=== PATIENT | female | born 1945 | race Caucasian/White ===

== ENCOUNTER → 2022-03-30 | Outpatient (CLI) | payer MEDICARE, OTHER, SELFPAY ==
[2022-03-30 16:02] LABS: Absolute Lymphocyte Count 1.83 X10^3/uL (0.83-4.51); Absolute Neutrophil Count 5.8 X10^3/uL (2.0-7.7); Basophil# 0.07 X10^3/uL; Basophil% 0.8 % (0-1); Eosinophil# 0.12 X10^3/uL; Eosinophils% 1.4 % (0-5); Hemoglobin 13.9 g/dL (12.0-15.0); Lymphocyte # 1.83 X10^3/ul (0.83-4.51); Lymphocyte % 20.7 % (19-41); Mean Corp Hgb Conc 33.1 g/dL (32-36); Mean Corpuscular Hgb 30.1 pg (27.0-32.0); Mean Corpuscular Volume 90.9 fL (81-99); Mean Platelet Vol. 11.8 fl (6.2-12.0); Monocyte# 1.01 X10^3/uL; Monocyte% 11.4 % (0-10); NRBC Flagged by Analyzer 0 % (0-5); Neutrophil % 65.5 % (47-70); Platelet Count 200 K/mm3 (150-450); RBC Distribution Width CV 13.9 % (11.6-14.6); RBC Distribution Width SD 46.4 fl (35.1-43.9); Red Blood Count 4.62 M/mm3 (4.2-5.4); White Blood Count 8.9 K/mm3 (4.4-11.0)
[2022-03-30 16:39] LABS: ALB/GLOB Ratio 0.6 RATIO (0.9-2.4); AST(SGOT) 139 U/L (15-37); Alanine Aminotransfer ALT/SGPT 115 U/L (13-56); Albumin, Serum 2.6 g/dL (3.2-5.0); Alkaline Phosphatase 360 U/L (45-117); Amylase 42 U/L (25-115); Anion Gap 6 (5-15); BUN 22 mg/dL (7-18); BUN/Creat Ratio 17.6 RATIO (10-20); Calcium,Total 9.3 mg/dL (8.5-10.1); Chloride 101 mmol/L (98-107); Creatinine, Serum 1.25 mg/dL (0.55-1.02); EST Glomerular Filtration Rate 44 mL/min (>60); Est Glom Filt Rate - Afr Amer 53 mL/min (>60); Globulin 4.7 g/dL (2.2-4.2); Glucose 111 mg/dL (74-106); Lipase 183 U/L (73-393); Potassium 3.7 mmol/L (3.5-5.1); Protein, Total 7.3 g/dL (6.4-8.2); Sodium Level 136 mmol/L (136-145)
[2022-03-30 17:03] LABS: Erythrocyte Sedimentation Rate 43 mm/hr (0-30)
== END | disposition home or self-care (01) ==
PROVIDERS: PCP Internal Medicine; Visit Provider Nurse Practitioner Adult Health
DX: R63.4 Abnormal weight loss (principal); R68.81 Early satiety; R11.0 Nausea; R10.13 Epigastric pain; T73.0XXA Starvation, initial encounter; K21.9 Gastro-esophageal reflux disease without esophagitis
CPT/HCPCS: 36415; 80053; 82150; 83690; 85025; 85652; 86140

== ENCOUNTER → 2022-04-03 | Outpatient (CLI) | payer MEDICARE, OTHER, SELFPAY ==
--- NOTE | 2022-04-03 12:05 | US_ITS ---
STUDY: ABDOMINAL ULTRASOUND - RIGHT UPPER QUADRANT REASON FOR VISIT: Female, 76 years old abnormal liver labs . Epigastric pain. TECHNIQUE: Ultrasound evaluation of the right upper quadrant was performed with real-time and static mccloud-scale imaging. TECHNICAL QUALITY: Adequate. COMPARISON: None. FINDINGS: Liver: The liver measures 17 cm. There is a heterogeneous echogenicity of the liver. Scattered hypodense solid nodules are seen throughout the liver. Metastatic disease should be ruled out. The bile ducts are within normal limits. There is hepatic color flow. The direction of portal flow is hepatopetal. There is no demonstrated mass lesion. Gallbladder: The patient is status post cholecystectomy. Common Bile Duct (C.B.D.): The common bile duct measures 5 mm. Pancreas: Limited visualization of the pancreas due to overlying bowel gas. Right Kidney: Normal size of the right kidney. The right kidney measures 10.8 cm x 4.3 cm x 4.4 cm. Normal renal cortex. The right cortex measures 1.5 cm. There is no demonstrated renal mass or cyst. There is no right hydronephrosis. US/Abdomen Limited IMPRESSION: Mild hepatomegaly and heterogeneous echotexture of the liver parenchyma with multiple hypoechoic solid nodules throughout both the right and left lobes. Metastatic disease should be ruled out. The patient is status post cholecystectomy. Electronically Signed: Jaret Starkey MD at 12:57 EDT ,
== END | disposition home or self-care (01) ==
LOC: US 12:03
PROVIDERS: PCP Internal Medicine; Referring Provider Nurse Practitioner Adult Health; Visit Provider Nurse Practitioner Adult Health
DX: K83.1 Obstruction of bile duct (principal); R10.13 Epigastric pain
CPT/HCPCS: 76705

== ENCOUNTER → 2022-04-06 | Outpatient (CLI) | payer MEDICARE, OTHER, SELFPAY ==
--- NOTE | 2022-04-06 08:30 | RAD_ITS ---
STUDY: AIR-CONTRAST UPPER GI SERIES REASON FOR EXAM: Female, 76 years old. Epigastric pain. FLUOROSCOPY TIME (if supplied): (1 minute 10 seconds). TECHNIQUE: Single contrast and air contrast fluoroscopic images. COMPARISON: Abdomen ultrasound from 04/03/2022 FINDINGS: AP images of the chest and upper abdomen taken prior to contrast administration demonstrate cervical fusion hardware and right upper quadrant surgical clips. The esophagus demonstrates normal motility without aspiration. There is no stricture or extrinsic mass effect. No intraluminal polypoid mass is identified. No sizable hiatal hernia. Small amount of gastroesophageal reflux was elicited. The stomach distends well without mucosal fold thickening or mucosal ulceration. There is no intraluminal mass. The duodenal bulb is freely distensible without deformity or ulceration. The duodenal sweep is normal in position and caliber. RAD/Upper GI/w Small Bowel IMPRESSION: Small amount of gastroesophageal reflux. Otherwise, no other significant findings. Electronically Signed: Ranulfo Michaud, at 13:09 EDT ,
== END | disposition home or self-care (01) ==
LOC: RAD 08:28
PROVIDERS: PCP Internal Medicine; Referring Provider Nurse Practitioner Adult Health; Visit Provider Nurse Practitioner Adult Health
DX: R10.13 Epigastric pain (principal); R63.4 Abnormal weight loss; R68.81 Early satiety; R11.0 Nausea; K21.9 Gastro-esophageal reflux disease without esophagitis; T73.0XXA Starvation, initial encounter
CPT/HCPCS: 74246; 74248

== ENCOUNTER → 2022-04-08 | Outpatient (CLI) | payer MEDICARE, OTHER, SELFPAY ==
--- NOTE | 2022-04-08 10:25 | NM_ITS ---
CLINICAL: 76-year-old female with early satiety and nausea GASTRIC EMPTYING-SULFUR COLLOID TECHNIQUE: The patient was orally administered 1.1 mCi of Tc-sulfur colloid in oatmeal. Gamma camera imaging acquisitions at 1-60 minutes post radiopharmaceutical administration was performed. COMPARISON STUDIES : NM - None. CR - Not available for review at this time. CT - Not available for review at this time. MR - Not available for review at this time. FINDINGS: There is normal filling and emptying of the stomach. No gastroesophageal reflux with normal passage into the small bowel. T 1/2 measures 37 minutes, within normal limits. NM/Gastric Emptying Study IMPRESSION: Normal gastric emptying nuclear medicine scan. Electronically Signed: Carlos Finch MD ([place]) at 12:42 EDT ,
[2022-04-08 13:04] LABS: LDH 480 U/L (84-246)
[2022-04-09 18:35] LABS: AFP, Tumor Marker 6.4 ng/mL (0.0-9.2); CA 15-3 36.2 U/mL (0.0-25.0); Carbohydrate Ag 19-9 2261 232 U/mL (0-35); Carcinoembryonic Antigen 2139 4.5 ng/mL (0.0-4.7)
[2022-04-11 12:45] LABS: Pancreatic Elastase, Fecal 463 (>200)
[2022-04-14 07:56] LABS: Fats, Neutral Normal (.); Fats, Total Normal (.)
== END | disposition home or self-care (01) ==
PROVIDERS: PCP Internal Medicine; Visit Provider Nurse Practitioner Adult Health
DX: C78.7 Secondary malignant neoplasm of liver and intrahepatic bile duct (principal); R10.13 Epigastric pain; R63.4 Abnormal weight loss; R68.81 Early satiety; R11.0 Nausea; K21.9 Gastro-esophageal reflux disease without esophagitis; T73.0XXA Starvation, initial encounter
CPT/HCPCS: 36415; 78264; 82105; 82378; 82653; 82705; 83615; 86300; 86301; A9541

== ENCOUNTER → 2022-04-10 | Outpatient (CLI) | payer MEDICARE, OTHER, SELFPAY ==
--- NOTE | 2022-04-10 13:18 | CT_ITS ---
STUDY: CT Abdomen And Pelvis W/ Contrast Injection 04/10/2022 3:52 PM REASON FOR EXAM: Female, 76 years old. Abdominal pain wt loss, early satiety, abd pain -- oral and iv Individualized dose optimization techniques were used for this CT. COMPARISON: None. TECHNIQUE: CT Abdomen And Pelvis W/ Contrast Injection IV 100mL Isovue-370 FINDINGS: There are atherosclerotic calcifications of visualized coronary arteries. The visualized portions of the heart are within normal limits. Diffusely heterogeneous liver liver. There are surgical clips in the gallbladder fossa consistent with a prior cholecystectomy. Normal spleen. Normal pancreas. There are multiple lesions noted in the liver which are likely related to metastatic disease. Normal bilateral adrenal glands. No acute findings of the right kidney. No acute findings of the left kidney. Normal visualized stomach. Normal small intestine. There are multiple colonic diverticula consistent with diverticulosis. There is non-visualization of the appendix. There are calcifications of the abdominal aorta. This is consistent for atherosclerotic disease. There is NO abdominal aortic aneurysm. Vascular workup can be obtained based on clinical correlation. Normal inferior vena cava. Mild retroperitoneal adenopathy. Normal urinary bladder. Sclerotic focus in the left femoral head.Sclerotic focus in the medial left iliac bone. This may be a bone island. Given the patient''s history metastatic disease cannot be excluded. There is an umbilical hernia containing fat. There are diffuse degenerative changes of the visualized lumbar spine. Grade 1 anterolisthesis of L4 on L5. CT/Abdomen/Pelvis WITH Contrast IMPRESSION: (NOT LISTED IN ORDER OF SIGNIFICANCE) Mild retroperitoneal adenopathy. There are multiple lesions noted in the liver which are likely related to metastatic disease. Other findings as above. Electronically Signed: Chacorta Rm MD at 15:57 EDT ,
--- NOTE | 2022-04-10 13:18 | CT_ITS ---
EXAM: CT CHEST WITH INTRAVENOUS CONTRAST CLINICAL INDICATION: liver mets, primary unknown Technologist Notes elevated liver enzymes, bloating, hx htn, lois TECHNIQUE: Helically acquired images were obtained of the chest with intravenous contrast. This CT exam was performed using one or more of the following dose reduction techniques: automated exposure control, adjustment of the mA and/or kV according to patient size, and/or use of iterative reconstruction technique. This report was created using [employer] report generation technology. CONTRAST: IV 100mL Isovue-370 RADIATION DOSE: CTDIvol = 19.42 mGy, DLP = 1726.13 mGy-cm COMPARISON: None. FINDINGS: LUNGS AND PLEURAL SPACES: There is a suspicious lobulated lesion in the right middle lobe measuring 21 x 17 mm. Se 2 IM: 75. ACR Lung CT Screening Reporting T Data System (Lung-RADS) score: 4XS - Very Suspicious. There are features or imaging findings that increase the suspicion of malignancy and additional clinically significant or potentially clinically significant findings described in this report. Recommend chest CT with or without contrast, PET/CT and/or tissue sampling depending on the probability of malignancy and comorbidities. PET/CT may be used when there is a >=8 mm solid component. For new large nodules that develop on an annual repeat screening CT, a 1 month LDCT may be recommended to address potentially infectious or inflammatory conditions. No pleural effusion or thickening. No pneumothorax. HEART: Unremarkable. Heart size is normal. No pericardial effusion. No significant coronary artery calcifications. MEDIASTINUM: Unremarkable. No mediastinal or hilar adenopathy. Esophagus is unremarkable. No hiatal hernia. THYROID: Unremarkable. No thyroid lesions. BONES/JOINTS: Cervical spinal fusion hardware. There are degenerative changes of the shoulders. There are multi-level degenerative changes of the thoracic spine. No suspicious lytic or blastic abnormality. VASCULATURE: There is atherosclerotic calcification of the aortic arch with tortuosity and elongation of the aortic arch and descending thoracic aorta. Thoracic aorta is non-dilated. No thoracic aortic dissection. No obvious central pulmonary embolism although this study was not performed with the pulmonary embolism protocol. LIVER: There are multiple lesions noted in the liver which are likely related to metastatic disease. GALLBLADDER AND BILE DUCTS: The gallbladder is surgically absent. CT/Chest WITH Contrast IMPRESSION: 1. There is a suspicious lobulated lesion in the right middle lobe measuring 21 x 17 mm. Se 2 IM: 75. ACR Lung CT Screening Reporting T Data System (Lung-RADS) score: 4XS - Very Suspicious. There are features or imaging findings that increase the suspicion of malignancy and additional clinically significant or potentially clinically significant findings described in this report. Recommend chest CT with or without contrast, PET/CT and/or tissue sampling depending on the probability of malignancy and comorbidities. PET/CT may be used when there is a >=8 mm solid component. For new large nodules that develop on an annual repeat screening CT, a 1 month LDCT may be recommended to address potentially infectious or inflammatory conditions. 2. There are multiple lesions noted in the liver which are likely related to metastatic disease. Electronically Signed: Chacorta Rm MD at 15:01 EDT ,
== END | disposition home or self-care (01) ==
LOC: CT 13:17
PROVIDERS: PCP Internal Medicine; Referring Provider Nurse Practitioner Adult Health; Visit Provider Nurse Practitioner Adult Health
DX: C78.7 Secondary malignant neoplasm of liver and intrahepatic bile duct (principal); R63.4 Abnormal weight loss
CPT/HCPCS: 71260; 74177; Q9967

== ENCOUNTER 2022-04-14 13:32 | Day surgery (SDC) | payer MEDICARE, OTHER, SELFPAY ==
--- NOTE | 2022-04-14 13:38 | HP.PCM_ITS ---
History and Physical Date of Admission: 04/14/22 Abnormal liver labs bilirubin 1.3, AST 139, ALT 115, alk phos 360, CRP 11.6, albumin 2.6, globulin 4.7. liver ultrasound done today showed multiple solid nodules suspicious for metastases.? Case discussed with Dr. Hogue.? Consider metastases from breast, colon, melanoma, pancreas, renal cell carcinoma amongst others.? She is already scheduled for CT of abdomen and pelvis, we will add CT of chest.? We will order liver biopsy.? She is scheduled for EGD we will add colonoscopy and get those moved up.? She recalls her most recent mammogram in September 2021 or October 2021, may need updated mammogram.? We will get AFP, CA 15?3, CA 19?9, CEA, LDH.? I discussed the possible liver mets with patient, and the next tests that we will order.? I will notify her PCP.? Patient reports her daughter had non-Hodgkin's lymphoma.? She reports her sister had 2 different types of breast cancer.? She reports her niece has breast cancer.? She reports her mother took ITA while patient was in utero; per the [employer] [place] that exposure increases her risk of clear-cell adenocarcinoma of the lower genital tract, of breast cancer after age 40, and of pancreatic cancer. 04/03/222 <Electronically signed by Diane Arteaga NP ADULT BASIC EDUCATION INSTRUCTOR-C> Date Diane Arteaga NP ADULT BASIC EDUCATION INSTRUCTOR-C cc:? Dr. Pooja Frazier, DO ~* Signed Intake Vital Signs ? 03/30/2214:01 Height 5 ft 5 in Weight: 226 lb BMI 37.5 BP 123/76 H Blood Pressure Location Rt brachial Position Sitting Pulse 81 Pulse Oximetry (%) 92 Oxygen Delivery Method room air Intake Visit Reasons:?Gastroesophageal reflux disease (GERD) Allergies MIGUEL Inhibitors Allergy (Intermediate, Verified 03/30/22 14:01) Coughlatex Allergy (Intermediate, Verified 03/30/22 14:01) RashNSAIDS (Non-Steroidal Anti-Inflamma Allergy (Intermediate, Verified 03/30/22 14:01) Upset stomachoxycodone Allergy (Intermediate, Verified 03/30/22 14:01) Rashspironolactone Allergy (Intermediate, Verified 03/30/22 14:01) HivesSulfa (Sulfonamide Antibiotics) Allergy (Intermediate, Verified 03/30/22 14:01) Rash Medications aspirin 81 mg tablet,delayed release 81 mg PO DAILY 02/18/22 [History Confirmed 03/30/22] celecoxib 200 mg capsule 200 mg PO DAILY 02/18/22 [History Confirmed 03/30/22] fluticasone propionate 50 mcg/actuation blister powder for inhalation 1 inh INHALATION Q12H 02/18/22 [History Confirmed 03/30/22] hydrochlorothiazide 50 mg tablet 50 mg PO BID? tab 02/18/22 [History Confirmed 03/30/22] losartan 100 mg tablet 100 mg PO DAILY 02/18/22 [History Confirmed 03/30/22] magnesium oxide 400 mg (241.3 mg magnesium) tablet 400 mg PO DAILY 02/18/22 [History Confirmed 03/30/22] metoprolol succinate 100 mg tablet,extended release 24 hr 100 mg PO DAILY 02/18/22 [History Confirmed 03/30/22] omeprazole 20 mg capsule,delayed release 20 mg PO DAILY 02/18/22 [History Confirmed 03/30/22] raloxifene 60 mg tablet 60 mg PO DAILY 02/18/22 [History Confirmed 03/30/22] PFSH Medical History?(Updated 03/30/22 @ 17:29 by Diane Arteaga ADULT BASIC EDUCATION INSTRUCTOR, ADULT BASIC EDUCATION INSTRUCTOR-C) Allergic rhinitis Cervical vertebral fusion Dyspepsia Exertional dyspnea GERD (gastroesophageal reflux disease) Hair loss Hiatal hernia HLD (hyperlipidemia) HTN (hypertension) Palpitations Pedal edema Personal history of colonic polyps Sleep apnea Ventricular tachycardia Surgical History? H/O bilateral oophorectomy H/O breast biopsy History of ankle surgery History of cardiac catheterization History of cholecystectomy History of knee replacement Family History? Mother Breast cancer Thyroid disorder OsteoporosisFather Dementia Diabetes Hypertension Social History? Smoking Status:? Never smoker substance use type:? does not use HPI HPI Details: CARSON HANNY, is a 76 F who presents to the office today for epigastric pain that began approximately 3 months ago.? She describes this as a gnawing discomfort like she is hungry.? It is getting worse over time. Feels better after eating, that lasts for 2-3 hours, but then the pain returns. Can eat breakfast but not lunch, not hungry at lunchtime or even at suppertime. Pain is worse when due to eat, but not hungry enough to eat. Tolerates mashes potatoes, Cream of Wheat.? Hot water can help with pain. Not tolerating hamburgers now. Pain doesn't wake her up. She can get some relief if she presses on epigastrium when taking a deep breath. Decreased appetite. Has early satiety. She has lost 20 lbs unintentionally.? Feels more comfortable and looser clothing. Takes Gaviscon prn, some relief of pain. Takes omeprazole at 2 pm. She feels a little better on 20 mg bid vs 40 mg once a day.? She was already on 20 mg of omeprazole daily, that dose was increased.? She has a history of acid reflux.? No history of Urffin's.? Occas has some acid reflux with a burp, not often. Has increased gas recently.? Has nausea w/o vomiting. Nausea coincides with gnawing pain. Symptoms are better if lies on left side. No difficulty swallowing. Bowels are ok. One episode of diarrhea recently, one bout of constipation recently, but otherwise normal. Typically has BM once daily, no straining. No melena or hematochezia. No lower abd pain. 09/12/2019 EGD and colonoscopy; no pathology on duodenal biopsy, no pathology on gastric biopsy, chronic inflammation in the distal esophagus negative for Ruffin's, tubular adenoma in the descending colon.? That EGD was done for recalcitrant dyspepsia despite PPI therapy.? History of hiatal hernia.? She has had cholecystectomy.? History of colon cancer in her maternal grandmother. Past medical history includes allergic rhinitis, hyperlipidemia, hypertension, palpitations, sleep apnea, ventricular tachycardia, GERD, pedal edema, colon polyps.? No smoking history. Past surgical history includes bilateral oophorectomy, breast biopsy, ankle surgery, cardiac cath, cholecystectomy, knee replacement ROS Const Constitutional: Positive for weight change; No fatigue ENT ENT: No difficulty swallowing Gastro GI: Positive for abdominal pain, bloating, heartburn, excessive flatus and nausea/dyspepsia; No belching, change in bowel habits, change in stool character, coffee ground emesis, constipation, cramping, diarrhea, difficulty swallowing, feeling full early, incontinent of stools, Vomiting blood/hematemesis, Blood in stool, loose stools, Black,tarry stools, pain with swallowing, vomiting or other Musc Musculoskeletal: Positive for joint pain, back pain, muscle cramps and Arthritis Skin Skin: No yellowing of the eye or itchy eyes Psych Psychiatric: No anxiety and No depression Endo Endocrine: Positive for weight change; No fatigue Aller/Imm Allergy/Immunologic: No itchy eyes [place]/Lymp Hematologic/Lymphatic: No easy bleeding or easy bruising Exam Const General: cooperative, comfortable, well developed and well groomed Nutritional Appearance: obese Eyes General: appearance normal, both eyes and all related structures Neck Neck: normal visual inspection and supple Resp Effort & Inspection: normal respiratory effort GI Inspection: normal to inspection Auscultation: normal bowel sounds Palpation: soft, no hepatosplenomegaly, no masses and tender in the epigastrum Neuro General: patient alert, patient awake and patient oriented x3 Speech: speech normal Gait: normal gait Extrem General: pedal edema (Trace) bilaterally Location: of the ankle Psych Mood: congruent mood Affect: normal affect Quality Reporting Tobacco Screening ([facility] 138) Smoking Status: Never smoker Assessment and Plan Assessment and Plan (1) Gastroesophageal reflux disease: ?Status:?Acute (2) Weight loss, unintentional: ?Status:?Acute (3) Early satiety: ?Status:?Acute (4) Nausea: ?Status:?Acute (5) Epigastric pain: ?Status:?Acute (6) Hunger pain: ?Status:?Acute (7) GERD (gastroesophageal reflux disease): ?Status:?Inactive ? ? ? Orders:?Orders: ? Amylase Today R63.4, R68.81, R11.0, R10.13, T73.0XXA, K21.9, K21.9 ? ? Comprehensive Metabolic Profil Today R63.4, R68.81, R11.0, R10.13, T73.0XXA, K21.9, K21.9 ? ? Lipase Today R63.4, R68.81, R11.0, R10.13, T73.0XXA, K21.9, K21.9 ? ? CBC W/Diff, Automated Today R63.4, R68.81, R11.0, R10.13, T73.0XXA, K21.9, K21.9 ? ? Fecal Fat, Qualitative Today R63.4, R68.81, R11.0, R10.13, T73.0XXA, K21.9, K21.9 ? ? Gastric Emptying Study Today R63.4, R68.81, R11.0, R10.13, T73.0XXA, K21.9, K21.9 ? ? Upper GI/w Small Bowel Today R63.4, R68.81, R11.0, R10.13, T73.0XXA, K21.9, K21.9 ? ? Pancreatic Elastase, Fecal Today R63.4, R68.81, R11.0, R10.13, T73.0XXA, K21.9, K21.9 ? ? CRP Today R63.4, R10.13 ? ? Erythrocyte Sed Rate Today R63.4, R10.13 ? ? CT Abd/Pelvis W/WO Contrast Today R63.4 ?Plan - Diane Arteaga NP, ADULT BASIC EDUCATION INSTRUCTOR-C: 76-year-old female with 3 months of epigastric pain, hunger pain, nausea, early satiety, unintentional weight loss, GERD not controlled on PPI.? Case discussed with Dr Hogue. DDx includes duodenal ulcer, acute or chronic pancreatitis, SMAS, delayed gastric emptying, pyloric stenosis.? UGI with small bowel follow-through to evaluate SMAS, pyloric stenosis.? Gastric emptying study also ordered.? We will get blood tests and stool tests for pancreatitis.? We will also check inflammatory markers, CBC, CMP.? We need CT abdomen pelvis with oral and IV contrast considering elderly age with early satiety, abdominal pain, and unintentional weight loss.? She will be scheduled for her EGD with 2-week follow-up to discuss results.? We will see her before then for a follow-up in approximately 6 weeks.? We will discuss results via phone call before then. I have re-examined the patient. There are no clinical changes since date of exam.
[2022-04-14 13:54] VITALS: BP 143/71; PULSE 87; RESP 16; TEMP 36.4; O2SAT 100; BMI 37.6
[2022-04-14] MEDS: Lactated Ringers 1,000 ML 15 ML IV (14:01)
--- NOTE | 2022-04-14 14:45 | COLBX_PTH ---
PATIENT: CARSON GAMINO LOC: EN U#:[id number] AGE/SX: 76/F ROOM: RE04/14/[address]: Dr. Samir Hogue DO : 1945 BED: DIS: 04/14/2022 SPEC #: [id number] RECD: 04/14/22 18:17 STATUS: YECENIA CALLAWAY #: [id number] KADY: 04/14/22 14:[address]: Samir Hogue DEPT: SURGICAL PATHOLOGY RECD BY: Dane Avilez ENTERED: 04/15/22 07:47 SP TYPE: COLON BX OTHR DR: Dr. Pooja Frazier DO Tissues: A - Esophagus, NOS B - Transverse colon C - COLON BIOPSY Procedures: Surgery Specimen Level IV HEADER OPERATION: Colonoscopy, E[place] [place] PRE-OP DIAGNOSIS: GERD, unintentional weight loss, early satiety, nausea, epigastric pain TISSUE SUBMITTED: A ? Distal esophagus biopsy, B ? Transverse colon polyp biopsy, C ? Random colon biopsy MICROSCOPIC DIAGNOSIS A. Distal esophagus, biopsy: Gastroesophageal junctional mucosa with mild chronic inflammation. No evidence of goblet cell metaplasia. See comment. B. Transverse colon polyp, biopsy: Polypoid fragment of benign colonic mucosa. See comment. C. Colon, random biopsy: No pathologic change. AM:rich 04/16/2022 COMMENT A. Alcian blue/PAS stain with matched control supports the above diagnosis. B. Neither hyperplastic nor adenomatous change is identified. Clinical correlation is suggested. MICROSCOPIC DESCRIPTION Slides are reviewed. GROSS DESCRIPTION A - Received in fixative is one container labeled with the patient's name and designated distal esophagus biopsy. The specimen consists of two irregular fragments of light young soft tissue that in aggregate measure 0.8 x 0.4 x 0.1 cm. The specimen is totally submitted in one cassette. B - Received in fixative is one container labeled with the patient's name and designated transverse colon polyp biopsy. The specimen consists of one irregular fragment of light young soft tissue that measures 0.4 x 0.3 x 0.1 cm. The specimen is totally submitted in one cassette. C - Received in fixative is one container labeled with the patient's name and designated random colon biopsy. The specimen consists of two irregular fragments of light young soft tissue that in aggregate measure 0.4 x 0.4 x 0.1 cm. The specimen is totally submitted in one cassette. / SJ:rg 04/15/2022 TC:3 CPT: 98203 x3, [id number]
[2022-04-14 15:08] VITALS: BP 100/51; BP 143/71; PULSE 73; RESP 16; TEMP 36.2; O2SAT 96
--- NOTE | 2022-04-14 15:11 | OP.EGD_ITS ---
Patient Name: Carol Saxena Procedure Date: 04/14/2022 2:35 PM Date of : 1945 Age: 76 Procedure: Upper GI endoscopy Indications: Epigastric abdominal pain, Abdominal pain in the right upper quadrant, Dyspepsia Providers: Samir Hogue DO Referring MD: Pooja Frazier Do Medicines: Monitored Anesthesia Care Patient Profile: This is a 76 year old female. Refer to note in patient chart for documentation of history and physical. Refer to note in patient chart for documentation of history and physical. Patient has symptoms of acute abdominal distention and acute epigastric abdominal pain. Complications: No immediate complications. Procedure: Pre-Anesthesia Assessment: - Prior to the procedure, a History and Physical was performed, and patient medications and allergies were reviewed. The patient is competent. The risks and benefits of the procedure and the sedation options and risks were discussed with the patient. All questions were answered and informed consent was obtained. Patient identification and proposed procedure were verified by the physician in the pre-procedure area. Mental Status Examination: alert and oriented. Airway Examination: normal oropharyngeal airway and neck mobility. Respiratory Examination: clear to auscultation. CV Examination: normal. Prophylactic Antibiotics: The patient does not require prophylactic antibiotics. Prior Anticoagulants: The patient has taken no previous anticoagulant or antiplatelet agents. After reviewing the risks and benefits, the patient was deemed in satisfactory condition to undergo the procedure. The anesthesia plan was to use moderate sedation / analgesia (conscious sedation). Immediately prior to administration of medications, the patient was re-assessed for adequacy to receive sedatives. The heart rate, respiratory rate, oxygen saturations, blood pressure, adequacy of pulmonary ventilation, and response to care were monitored throughout the procedure. The physical status of the patient was re-assessed after the procedure. After obtaining informed consent, the endoscope was passed under direct vision. Throughout the procedure, the patient's blood pressure, pulse, and oxygen saturations were monitored continuously. The pediatric colonoscope was introduced through the mouth, and advanced to the second part of duodenum. The upper GI endoscopy was accomplished without difficulty. The patient tolerated the procedure well. Scope In: 2:48:02 PM Scope Out: 2:51:31 PM Total Procedure Duration Time 0 hours 3 minutes 29 seconds Findings: LA Grade A (one or more mucosal breaks less than 5 mm, not extending between tops of 2 mucosal folds) esophagitis with no bleeding was found 36 to 37 cm from the incisors. Biopsies were taken with a cold forceps for histology. Verification of patient identification for the specimen was done. Estimated blood loss was minimal. The examined esophagus was normal. The second portion of the duodenum was normal. Biopsies were taken with a cold forceps for histology. Estimated blood loss was minimal. A moderate Schatzki ring was found in the lower third of the esophagus. A guidewire was placed and the scope was withdrawn. Dilation was performed with a Savary dilator with no resistance at 33 Fr. A medium-sized hiatal hernia was present. Impression: - LA Grade A reflux esophagitis. Biopsied. - Normal esophagus. - Normal second portion of the duodenum. Biopsied. Recommendation: - Discharge patient to home. - Resume previous diet. - Continue present medications. - Await pathology results. Procedure Code(s): --- Professional --- 90613, Esophagogastroduodenoscopy, flexible, transoral; with insertion of guide wire followed by passage of dilator(s) through esophagus over guide wire 48947, 59,51, Esophagogastroduodenoscopy, flexible, transoral; with biopsy, single or multiple CPT copyright 2017 [employer]. All rights reserved. The codes documented in this report are preliminary and upon associate school psychologist review may be revised to meet current compliance requirements. Samir Hogue DO 04/14/2022 3:10:42 PM This report has been signed electronically. Number of Addenda: 1 Note Initiated On: 04/14/2022 2:35 PM Addendum Number: 1 Addendum Date: 07/21/2022 6:04:22 AM MAC was used as sedation for this procedure. Samir Hogue DO 07/21/2022 6:04:26 AM This report has been signed electronically.
--- NOTE | 2022-04-14 15:11 | OP.CCLET_ITS ---
07/21/2022 Pooja Frazier Do Re : Upper GI endoscopy procedure for Carol Saxean Dear Freddie This procedure was performed on Thursday, April 14, 2022. My impressions and recommendations are as follows: Impressions : - LA Grade A reflux esophagitis. Biopsied. - Normal esophagus. - Normal second portion of the duodenum. Biopsied. Recommendations : - Discharge patient to home. - Resume previous diet. - Continue present medications. - Await pathology results. My findings are described in the full procedure note, which is enclosed. If I can be of further assistance, please feel free to contact me at . Sincerely, Samir Hogue DO 04/14/2022 3:10:42 PM This report has been signed electronically.
[2022-04-14 15:13] VITALS: BP 116/51; BP 143/71; PULSE 74; RESP 16; O2SAT 96
--- NOTE | 2022-04-14 15:14 | OP.COLON_ITS ---
Patient Name: Carol Saxena Procedure Date: 04/14/2022 2:52 PM Date of : 1945 Age: 76 Procedure: Colonoscopy Indications: Suspected metastatic malignancy to liver Providers: Samir Hogue DO Referring MD: Pooja Frazier Do Medicines: Monitored Anesthesia Care Patient Profile: This is a 76 year old female. Refer to note in patient chart for documentation of history and physical. Refer to note in patient chart for documentation of history and physical. Patient has symptoms of acute abdominal distention and acute epigastric abdominal pain. Last Colonoscopy: 5 years ago. Complications: No immediate complications. Procedure: Pre-Anesthesia Assessment: - Prior to the procedure, a History and Physical was performed, and patient medications and allergies were reviewed. The patient is competent. The risks and benefits of the procedure and the sedation options and risks were discussed with the patient. All questions were answered and informed consent was obtained. Patient identification and proposed procedure were verified by the physician in the pre-procedure area. Mental Status Examination: alert and oriented. Airway Examination: normal oropharyngeal airway and neck mobility. Respiratory Examination: clear to auscultation. CV Examination: normal. Prophylactic Antibiotics: The patient does not require prophylactic antibiotics. Prior Anticoagulants: The patient has taken no previous anticoagulant or antiplatelet agents. After reviewing the risks and benefits, the patient was deemed in satisfactory condition to undergo the procedure. The anesthesia plan was to use moderate sedation / analgesia (conscious sedation). Immediately prior to administration of medications, the patient was re-assessed for adequacy to receive sedatives. The heart rate, respiratory rate, oxygen saturations, blood pressure, adequacy of pulmonary ventilation, and response to care were monitored throughout the procedure. The physical status of the patient was re-assessed after the procedure. After I obtained informed consent, the scope was passed under direct vision. Throughout the procedure, the patient's blood pressure, pulse, and oxygen saturations were monitored continuously. The pediatric colonoscope was introduced through the anus and advanced to the terminal ileum. The colonoscopy was performed without difficulty. The patient tolerated the procedure well. The quality of the bowel preparation was good. Scope In: Scope Withdrawal Time 0 hours 7 minutes 55 seconds Scope Out: 3:03:44 PM Findings: The perianal and digital rectal examinations were normal. A 5 mm polyp was found in the transverse colon. The polyp was sessile. The polyp was removed with a cold snare. Resection and retrieval were complete. Verification of patient identification for the specimen was done. Estimated blood loss was minimal. An area of mildly congested mucosa was found in the sigmoid colon and in the descending colon. Biopsies were taken with a cold forceps for histology. Verification of patient identification for the specimen was done. Estimated blood loss was minimal. Non-bleeding internal hemorrhoids were found during retroflexion. The hemorrhoids were Grade I (internal hemorrhoids that do not prolapse). Impression: - One 5 mm polyp in the transverse colon, removed with a cold snare. Resected and retrieved. - Congested mucosa in the sigmoid colon and in the descending colon. Biopsied. Recommendation: - Discharge patient to home. - Resume previous diet. - Continue present medications. - Await pathology results. - Repeat colonoscopy in 5 years for surveillance based on pathology results. Procedure Code(s): --- Professional --- 96204, Colonoscopy, flexible; with removal of tumor(s), polyp(s), or other lesion(s) by snare technique 79856, 59, Colonoscopy, flexible; with biopsy, single or multiple CPT copyright 2017 [employer]. All rights reserved. The codes documented in this report are preliminary and upon application services manager review may be revised to meet current compliance requirements. Samir Hogue DO 04/14/2022 3:14:17 PM This report has been signed electronically. Number of Addenda: 1 Note Initiated On: 04/14/2022 2:52 PM Addendum Number: 1 Addendum Date: 07/21/2022 6:04:35 AM MAC was used as sedation for this procedure. Samir Hogue DO 07/21/2022 6:04:39 AM This report has been signed electronically.
--- NOTE | 2022-04-14 15:15 | OP.CCLET_ITS ---
07/21/2022 Pooja Frazier Do Re : Colonoscopy procedure for Carol Saxena Dear Freddie This procedure was performed on Thursday, April 14, 2022. My impressions and recommendations are as follows: Impressions : - One 5 mm polyp in the transverse colon, removed with a cold snare. Resected and retrieved. - Congested mucosa in the sigmoid colon and in the descending colon. Biopsied. Recommendations : - Discharge patient to home. - Resume previous diet. - Continue present medications. - Await pathology results. - Repeat colonoscopy in 5 years for surveillance based on pathology results. My findings are described in the full procedure note, which is enclosed. If I can be of further assistance, please feel free to contact me at . Sincerely, Samir Hogue, 04/14/2022 3:14:17 PM This report has been signed electronically.
[2022-04-14 15:18] VITALS: BP 136/64; BP 143/71; PULSE 75; RESP 16; O2SAT 95
[2022-04-14 15:23] VITALS: BP 136/70; BP 143/71; PULSE 80; RESP 16; TEMP 36.1; O2SAT 95
[2022-04-14 15:50] VITALS: BP 143/71
== END 2022-04-14 16:30 | disposition home or self-care (01) ==
LOC: EN 13:34 → AC 13:34
PROVIDERS: PCP Internal Medicine; Referring Provider Internal Medicine; Visit Provider Internal Medicine Gastroenterology
PROC: 0DJD8ZZ Inspection of Lower Intestinal Tract, Via Natural or Artificial Opening Endoscopic (ICD-10-PCS; CPT 45378; principal; 2022-04-14 14:40)
DX: K22.2 Esophageal obstruction (principal); K21.00 Gastro-esophageal reflux disease with esophagitis, without bleeding; K63.5 Polyp of colon; K63.89 Other specified diseases of intestine; R68.81 Early satiety; I10 Essential (primary) hypertension; K64.0 First degree hemorrhoids; E78.5 Hyperlipidemia, unspecified; Z79.82 Long term (current) use of aspirin; Z79.899 Other long term (current) drug therapy; Z86.010 Personal history of colon polyps; Z80.0 Family history of malignant neoplasm of digestive organs
CPT/HCPCS: 45385; 45380; 43239; 43248; 88305; J7120; J2405

== ENCOUNTER → 2022-04-17 | Outpatient (CLI) | payer MEDICARE, OTHER, SELFPAY ==
[2022-04-17] VITALS (11 sets, daily range): BP systolic 106–177; BP diastolic 55–101; PULSE 76–94; RESP 13–20; TEMP 36.4; O2SAT 96–99; BMI 36.4
--- NOTE | 2022-04-17 | ASPIGT_PTH ---
PATIENT: CARSON GAMINO LOC: CT U#:[id number] AGE/SX: 76/F ROOM: RE04/17/[address]: FABY Zapata : 1945 BED: DIS: 04/17/2022 SPEC #: [id number] RECD: 04/17/22 10:00 STATUS: YECENIA RELew #: [id number] KADY: 04/17/22 00:[address]: Diane Arteaga NP DEPT: SURGICAL PATHOLOGY RECD BY: Dane Avilez ENTERED: 04/17/22 10:48 SP TYPE: ASP RAD OTHR DR: Dr. 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 See microscopic description and comment. SJ:rich 04/22/2022 COMMENT The specimen is evaluated at the time of biopsy by Dr. Bland. Immediate Evaluation: Set #1 - Negative for malignant cells. Hepatocytes are noted (three touch imprints). Set #2 - Negative for malignant cells. Hepatocytes are noted (two touch imprints). Immunohistochemistry ([id number]) supports the above diagnosis. Clinical correlation and appropriate follow up are necessary. Case has been reviewed in consultation with Dr. Ramey who concurs with the above diagnosis. IDC:AM MICROSCOPIC DESCRIPTION Slides are reviewed. The specimen shows fragments of liver parenchymal tissue with focal area showing well-differentiated metastatic neuroendocrine tumor (0.1 cm in greatest dimension). The rest of the specimen shows liver parenchymal tissue. The hepatocytes show extensive macro- and microvesicular steatosis. Significant lobular inflammation is not seen. Portal area shows mild to moderate chronic inflammation. Interface inflammation is not seen. Iron stain shows absent iron. Reticulin stain is unremarkable. Trichrome stain shows focal portal, periportal and bridging fibrosis. PAS stain with and without diastase do not show any abnormal accumulation of protein. All stains are performed with appropriate matched controls. GROSS DESCRIPTION Received in fixative is one container labeled with the patient's name and designated liver. The specimen consists of multiple elongated fragments of young soft tissue that in aggregate measure 2 x 1 x 0.1 cm. The specimen is totally submitted in one cassette. Five touch imprints in two sets are prepared at the time of core biopsy. / SJ:rg 04/17/2022 TC:0 CPT: 10678, 15865, 35943 x5 ADDENDUM ADDENDUM ADDENDUM ADDENDUM ADDENDUM ADDENDUM ADDENDUM ADDENDUM ADDENDUM ADDENDUM ADDENDUM 05/27/2022 09:10 ADDENDUM 05/27/2022 09:10 ADDENDUM 05/27/2022 09:10 ADDENDUM 05/27/2022 09:10 ADDENDUM 05/27/2022 09:10 This addendum is added to incorporate an outside pathology consultation report. The case was examined at [facility] (#[id number]) and the following diagnosis was rendered. Liver, CT-guided core biopsy: Minute focus of tumor involving liver, consistent with metastatic neuroendocrine tumor. Background steatohepatitis with severe steatosis and periportal to bridging fibrosis. Please see complete above mentioned consultation report in EMR
--- NOTE | 2022-04-17 | IMM_PTH ---
PATIENT: CARSON GAMINO LOC: CT U#:[id number] AGE/SX: 76/F ROOM: RE04/17/[address]: FABY Zapata : 1945 BED: DIS: 04/17/2022 SPEC #: [id number] RECD: 04/21/22 13:07 STATUS: YECENIA REQ #: [id number] KADY: 04/17/22 00:[address]: Diane Arteaga NP DEPT: IMMUNOHISTOCHEMISTRY RECD BY: Magalys Nair ENTERED: 04/21/22 13:09 SP TYPE: IMMUNO OTHR DR: Dr. Pooja Frazier, DO Tissues: Liver, NOS Procedures: Synapto (add) CD56 (add) CHROMO (add) CK7 (add) CK8 (add) HEP PAR (add) KI-67 (add) Pankeratin (initial) PHYSICIAN & INSTITUTION [place] [id number] SPECIMEN INFORMATION: Tissue Source: Liver Clinical Info: Possible mets, primary unknown Specimen Number: [id number] CPT code: 38518, 84038 x7 METHODOLOGY: Deparaffinized sections of prefer/formalin-fixed tissue or PAP/DQ stained slides are incubated with monoclonal/polyclonal antibodies/oligonucleotide probes. Localization is made via biotin free immunoperoxidase method. Appropriate controls are performed and reacted as expected. Results on target cell population are indicated in the following table: RESULTS: ANTIBODY / CLONE RESULT AE1-3 (AE1/AE3/PCK26) positive CK7 (OV-TL12/30) positive CK8 (39vyvhL72) positive CD56 (123C3.D5) positive Chromo (LK2H10) positive Synapto (polyclonal) positive HepPar (OCh1E5) negative Ki-67 (30-9) positive, low, ~7% These tests were developed and their performance characteristics determined by [facility]. They may not have been cleared or approved by the U.[place]. Food and Drug Administration. The FDA has determined that such clearance or approval is not necessary. The above immunohistochemical/dualISH markers are ordered and reviewed by the Pathologist. INTERPRETATION: Liver, CT-guided biopsy: Consistent with metastatic well differentiated neuroendocrine tumor. SJ:rich 04/22/2022 Case has been reviewed in consultation with Dr. Ramey who concurs with the above diagnosis. IDC:AM
[2022-04-17 07:33] LABS: Platelet Count 159 K/mm3 (150-450)
--- NOTE | 2022-04-17 07:35 | CT_ITS ---
PROCEDURE: CT DIRECTED CORE LIVER BIOPSY INDICATION: Female, 76 years old. Liver mets on US PHYSICIAN: Dr. DARREN Zhou CONSENT: Written informed consent was obtained having explained the risks, benefits and alternatives in detail with the patient who accepted the risks and agreed to proceed. Laboratory review and clinical assessment was performed. CONSCIOUS SEDATION PROTOCOL: The Drugs used were: 2 mg Versed, IV., and 50 mcg Fentanyl, IV. The sedation time was: 23 minutes. Conscious sedation was started at 9:10 AM and terminated at 9:33 AM. The conscious sedation protocol was independently monitored. RADIATION DOSAGE (If Supplied By Facility): CTDIvol = ( 18 ) mGy, DLP = ( 868.59 ) mGycm Individualized dose optimization techniques were used for this CT. TECHNIQUE: Using CT image guidance with image documentation, a suitable location in the left lobe of the liver was identified. Using an anterior approach, puncture of the liver was uneventful with an 18-gauge core needle system. 6, 18-gauge core samples were obtained, and submitted in formalin to the pathologist for further assessment. Followup CT scan revealed no distinct sequelae. CT/Biopsy/Inj or Needle Placement IMPRESSION: 1. CT directed core needle biopsy of the liver, using CT image guidance with image documentation as described. 2. Conscious Sedation protocol utilized with independent monitoring. Electronically Signed: Jaret Starkey MD at 10:56 EDT ,
[2022-04-17 08:02] LABS: International Normalized Ratio 1.1; Prothrombin Time (Protime)PT. 13.7 SECONDS (11.7-14.9)
[2022-04-17 08:03] LABS: Partial Thromboplast Time 31.3 Seconds (24.1-36.2)
[2022-04-17] MEDS: 0.9% Normal Saline 250 ML IV.SOLN. (09:08)
[2022-04-17] MEDS: Midazolam 2 MG/2 ML Syringe IV (09:10)
[2022-04-17] MEDS: fentaNYL 100 MCG/2 ML Ampul IV (09:12)
[2022-04-17] MEDS: Lidocaine 2% (20 ml mdv) 20 ML Vial INFILT (09:23)
== END | disposition home or self-care (01) ==
PROVIDERS: PCP Internal Medicine; Referring Provider Nurse Practitioner Adult Health; Visit Provider Nurse Practitioner Adult Health
DX: C78.7 Secondary malignant neoplasm of liver and intrahepatic bile duct (principal)
CPT/HCPCS: 47000; 36415; 77012; 85049; 85610; 85730; 88172; 88305; 88307; 88313; 88341; 88342; 99156; J7050; A4216